=== PATIENT | female | born 1960 | race Caucasian/White ===

== ENCOUNTER 2021-01-28 08:32 | Outpatient (CLI) | payer BC ==
[2021-01-28] MEDS ORDERED: BARIUM SULFATE 135 ML SUSP.RECON (E-Z-HD) PO ONE (08:57)
== END 2021-01-28 20:19 | disposition home or self-care (01) ==
LOC: SRD 08:32
PROVIDERS: ATTEND Otolaryngology Plastic Surgery within the Head & Neck
DX: R13.10 Dysphagia, unspecified (principal)
CPT/HCPCS: 74220-TC